=== PATIENT | male | born 1990 | race Two or more races ===

== ENCOUNTER 2018-10-06 23:32 | Inpatient (IN) | payer OTHER ==
[2018-10-06] MEDS ORDERED: EPINEPHrine 1:1,000 - 30 MG/30 ML VIAL IM ONE (23:36)
--- NOTE | 2018-10-06 23:38 | PDOC ---
History of Present Illness - General Stated Complaint: DIFF. BREATHING Time Seen by Provider: 10/06/18 23:34 - History of Present Illness Initial Comments: 10/06/18 23:34 Mr. Benedict is a 28 yo male w/ pmh of Asthma (requiring intubation at outside hospital 1 year ago) who presents for difficulty breathing. Patient reports he was his in [facility] until 2 hours ago when he began to get short of breath. Elected to call EMS when his home nebulizer did not improve his symptoms. En route to ED patient received 10mg decadron and 2 combivent treatments. The patient denies chest pain, headache and dizziness. Denies fever, chills, nausea, vomit, diarrhea and constipation. Denies dysuria, frequency, urgency and hematuria. Past History - Past Medical History Allergies/Adverse Reactions: Allergies Allergy/AdvReac Type Severity Reaction Status Date / Time No Known Allergies Allergy Verified 10/06/18 23:44 Review of Systems - Review of Systems Comments:: 10/06/18 23:34 GENERAL/CONSTITUTIONAL: No fever or chills. No weakness. HEAD, EYES, EARS, NOSE AND THROAT: No change in vision. No ear pain or discharge. No sore throat. CARDIOVASCULAR: +SOB as described. No chest pain RESPIRATORY: No cough, wheezing, or hemoptysis. GASTROINTESTINAL: No nausea, vomiting, diarrhea or constipation. GENITOURINARY: No dysuria, frequency, or change in urination. MUSCULOSKELETAL: No joint or muscle swelling or pain. No neck or back pain. SKIN: No rash NEUROLOGIC: No headache, vertigo, loss of consciousness, or change in strength/ sensation. ENDOCRINE: No increased thirst. No abnormal weight change HEMATOLOGIC/LYMPHATIC: No anemia, easy bleeding, or history of blood clots. ALLERGIC/IMMUNOLOGIC: No hives or skin allergy. *Physical Exam - Physical Exam Comments: 10/06/18 23:35 GENERAL: Awake, alert, and fully oriented, in no acute distress HEAD: No signs of trauma, normocephalic, atraumatic EYES: PERRLA, EOMI, sclera anicteric, conjunctiva clear ENT: Auricles normal inspection, hearing grossly normal, nares patent, oropharynx clear without exudates. Moist mucosa NECK: Normal ROM, supple, no lymphadenopathy, JVD, or masses LUNGS: +Diffuse wheezes appreciated throughout lung [place]. HEART: Regular rate and rhythm, normal S1 and S2, no murmurs, rubs or gallops, peripheral pulses normal and equal bilaterally. ABDOMEN: Soft, nontender, normoactive bowel sounds. No guarding, no rebound. No masses EXTREMITIES: Normal inspection, Normal range of motion, no edema. No clubbing or cyanosis. NEUROLOGICAL: Cranial nerves II through XII grossly intact. Normal speech, normal gait, no focal sensorimotor deficits SKIN: Warm, Dry, normal turgor, no rashes or lesions noted. ED Treatment Course - LABORATORY CBC & Chemistry Diagram: 10/07/18 00:35 10/07/18 00:35 Medical Decision Making - Medical Decision Making 10/07/18 00:31 Mr. Benedict is a 28 yo male w/ pmh as described who presents for evaluation of asthma exacerbation. Patient received 2 duonebs + decadron en route; patient started on BiPap upon arrival w/ additional magnesium + epinephrine. Patient will be monitored closely and evaluated with EKG / CXR / CBC / CMP for possible asthma exacerbation factors and likely will be admitted for observation. 10/07/18 01:57 Patient exam improved with wheezing decreased significantly. Patient signed out to Dr. Arthur for further evaluation. *DC/Admit/Observation/Transfer Diagnosis at time of Disposition: Asthma exacerbation Qualifiers: Asthma severity: unspecified severity Asthma persistence: unspecified Qualified Code(s): J45.901 - Unspecified asthma with (acute) exacerbation - Discharge Dispostion Decision to Admit order: Yes - Referrals - Patient Instructions - Post Discharge Activity
[2018-10-06 23:44] VITALS: BMI 24.3
[2018-10-06] MEDS ORDERED: MAGNESIUM SULF 50% (8.12 MEQ/2 ML-1 GM VIAL) ONE (23:53)
[2018-10-06] MEDS ORDERED: EPINEPHrine/PF 1 MG/1 ML (1:1,000) AMPULE ONE (23:56)
[2018-10-07] MEDS: ALBUTEROL SO4 2.5/IPRATROPIUM 0.5 INH SOL 3 ML VIAL.NEB. NEB SCH ×2 (00:20→00:33)
[2018-10-07] MEDS ORDERED: MAGNESIUM SULF 50% (8.12 MEQ/2 ML-1 GM VIAL) IVPB ONE (00:20)
[2018-10-07] MEDS ORDERED: MAGNESIUM SULF 50% (8.12 MEQ/2 ML-1 GM VIAL) ONE (01:07)
[2018-10-07 01:34] LABS: BASO % 0.9 % (0-2.0); HEMATOCRIT 48.5 % (35.4-49); HEMOGLOBIN 16.4 GM/dL (11.7-16.9); LYMPH % 28.1 % (8-40); MCHC 33.8 g/dl (32.0-35.9); MEAN CELL VOLUME 100.5 fl (80-96); MEAN PLT VOLUME 8.4 fl (7.5-11.1); MONO % 4.6 % (3.8-10.2); NEUT % 59.4 % (42.8-82.8); PLATELET COUNT 317 K/MM3 (134-434); RBC 4.83 M/mm3 (4.00-5.60); RDW 12.8 % (11.9-15.9); WHITE BLOOD COUNT 10.4 K/mm3 (4.0-10.0)
[2018-10-07 01:56] LABS: ALBUMIN 4.2 g/dl (3.4-5.0); BILIRUBIN,TOTAL 0.6 mg/dL (0.2-1); CALCIUM 8.8 mg/dL (8.5-10.1); POTASSIUM 3.8 mmol/L (3.5-5.1)
--- NOTE | 2018-10-07 02:09 | PDOC ---
Documentation entered by Obie John SCRIBE, acting as scribe for Gui Sanchez MD. Gui Sanchez MD: This documentation has been prepared by the Alvaro lenz Daniel, SCRIBE, under my direction and personally reviewed by me in its entirety. I confirm that the documentation accurately reflects all work, treatment, procedures, and medical decision making performed by me. Attending Attestation - Resident Resident Name: BarronMichael - ED Attending Attestation I have performed the following: I have examined & evaluated the patient, The case was reviewed & discussed with the resident, I agree w/resident's findings & plan, Exceptions are as noted - HPI HPI: 10/06/18 23:40 The patient is a 28 year old male with a past medical history of asthma ( intubated once last year) brought in today by EMS for evaluation of shortness of breath. The patient reports that he had a sudden onset of shortness of breath 2 hours prior to his arrival at the ED. He states that it feels like his typical asthma attacks. Patient was given 2 duoneb treatments and dexamethasone as per EMS but feels no relief. Patient denies headache, lightheadedness. Denies fever, chills. Denies chest pain. Denies nausea, vomiting, diarrhea, abdominal pain. Social history: Patient denies tobacco and illicit drug use. - Physicial Exam PE: 10/07/18 00:05 GENERAL: Awake, alert, in moderate resp distress. Diaphoretic HEAD: No signs of trauma EYES: PERRLA, EOMI, sclera anicteric, conjunctiva clear ENT: Oropharynx clear without exudates. Moist mucosa NECK: Normal ROM, supple, no lymphadenopathy, JVD, or masses LUNGS: Diffuse wheezing with poor air movement, no crackles HEART: Regular rate and rhythm, normal S1 and S2, no murmurs, rubs or gallops ABDOMEN: Soft, nontender, normoactive bowel sounds. No guarding, no rebound. No masses EXTREMITIES: Normal range of motion, no edema. No cords, erythema, or tenderness NEUROLOGICAL: Normal speech, cranial nerves intact, equal strength and sensation b/l SKIN: Warm, Dry, normal turgor, no rashes or lesions noted. - Medical Decision Making 10/07/18 02:07 28yo M presents to the ED with asthma exacerbation Pt in moderate distress despite nebs, dex, was put on bipap with continuous nebs going and given IM epi Improved on bipap, sat 99%, decreased WOB Labs, XR pending, plan to admit pt Pt signed out to overnight attending for f/u on diagnostics and admission
--- NOTE | 2018-10-07 02:22 | PN ---
Teaching Attending Note Name of Resident: Perla Dominguez ATTENDING PHYSICIAN STATEMENT I saw and evaluated the patient. I reviewed the resident's note and discussed the case with the resident. I agree with the resident's findings and plan as documented. SUBJECTIVE: Seen and examined; please refer tor mandeepdent note for further hsitorical documentation. Briefly, this is a 28 y/o male presenting to the ER with an asthma exacerbation; he has a mild eosinophilia and a WBC of 10 but no fevers, etc. He was initially placed on BiPap in [facility] ER satting 100%. Diagnosed with asthma 3.5 yrs ago was intubated once; this is his first visit here. This was sudden-onset asthma. No specific historical triggers for his attacks. Has been using albuterol more frequently this week and 4 times today. No inhaled steroids. No recent abx/infections. No PFTs available. 10 sys ROS done and negative aside from HPI PMH, PSH, FH, SH reviewed Home med reconciliation pending OBJECTIVE: VS, labs, imaging reviewed NAD, AAO, resting in bed on BiPap weaning to NC NC AT EOMI PERRLA RRR s1/2 no mgr Lungs with moderate scattered wheezes throughout with adequate air entry, w/ sym exp NT ND +BS CN2-12 wnl, no fnd Normal mood, appropriate behavior EKG reviewed CXR reviewed; NAD ASSESSMENT AND PLAN: Patient presents with asthma exacerbation; found to have high EP% and was diagnosed with asthma as adult 1) Acute Asthma Exacerbation -Weaning from bipap to NC; steroids and scheduled albuterol -As likely moderate to severe asthma at baseline startign monteleukast; will need inhaled steroid at DC -Given elevated EP% and late age dx of asthma checking ANCA -Consider pulm consult in AM 2) Eosinophilia -Trending; discussed further in #1 Full Code
[2018-10-07 02:34] LABS: VENOUS PC02 38.5 mmHg (41-51); VENOUS PH 7.4 (7.31-7.41)
[2018-10-07 02:48] LABS: ALLENS TEST POSITIVE
[2018-10-07 02:56] LABS: ARTERIAL BLD GAS O2 SATURATION 99.5 % (95-98); ARTERIAL BLOOD GAS BASE EXCESS -0.5 meq/l (-2-2); ARTERIAL BLOOD GAS PCO2 46.3 mmHg (35-45); ARTERIAL BLOOD GAS PO2 236 mmHg (80-105); ARTERIAL BLOOD GAS pH 7.35 (7.35-7.45)
[2018-10-07] MEDS ORDERED: predniSONE 20 MG TABLET (UD) PO SCH ×2 (02:58→10:00)
--- NOTE | 2018-10-07 03:08 | HP ---
CHIEF COMPLAINT: shortness of breath PCP:unknown HISTORY OF PRESENT ILLNESS: 28 y/o male with PMH of asthma (diagnosed 3.5 years ago) presents to the ED with acute onset shortness of breath/ Patient states he all f the sudden got short of breath- which is typical for his asthma exacerbations- he can never truly pinpoint exactly what causes these exacerbations. He has been intubated once before which was last year. he states that for his asthma he uses his rescue inhaler when need be and this week he had been using a few more times than usual. he denies any systemic symptoms; no cough/cold/fevers or chills no recent travel or sick contacts. ER course was notable for: (1)patient given mag sulfate; epinephrine (2)patient placed on BIPAP (3) CXR clear; awaiting ABG Recent Travel: denies PAST MEDICAL HISTORY: see above PAST SURGICAL HISTORY: denies Social History: Smoking:denies Alcohol:denies Drugs: denies Family History: mother: HTN; ffather: cannot recall Allergies No Known Allergies Allergy (Verified 10/06/18 23:44) HOME MEDICATIONS: REVIEW OF SYSTEMS CONSTITUTIONAL: Absent: fever, chills, diaphoresis, generalized weakness, malaise, loss of appetite, weight change HEENT: Absent: rhinorrhea, nasal congestion, throat pain, throat swelling, difficulty swallowing, mouth swelling, ear pain, eye pain, visual changes CARDIOVASCULAR: Absent: chest pain, syncope, palpitations, irregular heart rate, lightheadedness , peripheral edema RESPIRATORY: Present: shortness of breath Absent: cough,, dyspnea with exertion, orthopnea, wheezing, stridor, hemoptysis GASTROINTESTINAL: Absent: abdominal pain, abdominal distension, nausea, vomiting, diarrhea, constipation, melena, hematochezia GENITOURINARY: Absent: dysuria, frequency, urgency, hesitancy, hematuria, flank pain, genital pain MUSCULOSKELETAL: Absent: myalgia, arthralgia, joint swelling, back pain, neck pain SKIN: Absent: rash, itching, pallor HEMATOLOGIC/IMMUNOLOGIC: Absent: easy bleeding, easy bruising, lymphadenopathy, frequent infections ENDOCRINE: Absent: unexplained weight gain, unexplained weight loss, heat intolerance, cold intolerance NEUROLOGIC: Absent: headache, focal weakness or paresthesias, dizziness, unsteady gait, seizure, mental status changes, bladder or bowel incontinence PSYCHIATRIC: Absent: anxiety, depression, suicidal or homicidal ideation, hallucinations. PHYSICAL EXAMINATION Vital Signs - 24 hr 10/06/18 10/07/18 10/07/18 23:42 00:02 00:48 Pulse Rate 111 H 85 Pulse Rate [ Apical] Respiratory 24 H Rate Blood Pressure 145/85 Blood Pressure [Left Arm] O2 Sat by Pulse 100 100 100 Oximetry (%) 10/07/18 10/07/18 00:50 02:24 Pulse Rate Pulse Rate [ 85 Apical] Respiratory 23 H Rate Blood Pressure Blood Pressure 127/78 [Left Arm] O2 Sat by Pulse 100 100 Oximetry (%) GENERAL: put is drowsy; but arousable wearing BIPAP EYES: PEERLA: EOMI: no sclerla icterus NECK: no JVD: nio lymphadenopathy LUNGS: wheezes auscultated B/L HEART: Regular rate and rhythm, normal S1 and S2 without murmur, rub or gallop. ABDOMEN: Soft, nontender, not distended, normoactive bowel sounds, no guarding, no rebound, no masses. No hepatomegaly or splenomegaly. MUSCULOSKELETAL: Normal range of motion at all joints. No bony deformities or tenderness. No CVA tenderness. EXTREMITIES: warm; well-perfused; no clubbing/cyanosis or edema NEUROLOGICAL: Cranial nerves II-XII intact. Normal speech. Normal gait. PSYCHIATRIC: Cooperative. Good eye contact. Appropriate mood and affect. SKIN: Warm, dry, normal turgor, no rashes or lesions noted, normal capillary refill. Laboratory Results - last 24 hr 10/07/18 10/07/18 10/07/18 00:35 00:35 02:17 WBC 10.4 H RBC 4.83 Hgb 16.4 Hct 48.5 MCV 100.5 H MCH 34.0 H MCHC 33.8 RDW 12.8 Plt Count 317 MPV 8.4 Absolute Neuts (auto) 6.2 Neutrophils % 59.4 Lymphocytes % 28.1 Monocytes % 4.6 Eosinophils % 7.0 H Basophils % 0.9 Nucleated RBC % 0 Anticoagulation Therapy Puncture Site ABG pH ABG pCO2 at Pt Temp ABG pO2 at Pt Temp ABG HCO3 ABG O2 Sat (Measured) ABG O2 Content ABG Base Excess Marlo Test VBG pH 7.40 POC VBG pCO2 38.5 L POC VBG pO2 208 H VBG HCO3 23.2 VBG O2 Sat (Keira) 99.7 H VBG Base Excess -0.8 O2 Delivery Device Oxygen Flow Rate Vent Mode Vent Rate Mechanical Rate Pressure Support Vent Sodium 140 Potassium 3.8 Chloride 107 Carbon Dioxide 25 Anion Gap 9 BUN 17 Creatinine 1.0 Est GFR (CKD-EPI)AfAm 117.36 Est GFR (CKD-EPI)NonAf 101.26 Random Glucose 99 Calcium 8.8 Total Bilirubin 0.6 AST 9 L ALT 18 Alkaline Phosphatase 61 Total Protein 7.0 Albumin 4.2 10/07/18 02:40 WBC RBC Hgb Hct MCV MCH MCHC RDW Plt Count MPV Absolute Neuts (auto) Neutrophils % Lymphocytes % Monocytes % Eosinophils % Basophils % Nucleated RBC % Anticoagulation Therapy No Result Required. Puncture Site Right radial ABG pH 7.35 ABG pCO2 at Pt Temp 46.3 H ABG pO2 at Pt Temp 236 H ABG HCO3 25.1 ABG O2 Sat (Measured) 99.5 H ABG O2 Content 24.2 H ABG Base Excess -0.5 Marlo Test Positive VBG pH POC VBG pCO2 POC VBG pO2 VBG HCO3 VBG O2 Sat (Keira) VBG Base Excess O2 Delivery Device Bipap Oxygen Flow Rate 60% Vent Mode S/t Vent Rate 18 Mechanical Rate Bipap Pressure Support Vent 16/7 Sodium Potassium Chloride Carbon Dioxide Anion Gap BUN Creatinine Est GFR (CKD-EPI)AfAm Est GFR (CKD-EPI)NonAf Random Glucose Calcium Total Bilirubin AST ALT Alkaline Phosphatase Total Protein Albumin ASSESSMENT/PLAN: 28 y.o male with PMH of asthma presents to the ED with acute onset shortness of breath likely secondary to his asthma #Asthma Exacerbation patient already received epinephrine and mag sulfate in the ED -albuterol q6h scheduled -prednisone 40mg daily -montelukast daily --f/u ABG -will try and wean patient off BIPAP -given late onset diagnosis of asthma + presence of eosinophils; will send ANCA for possible churg chilo diagnosis -monitor O2 sats -monitor mental status -can consider pulm consult in AM F/E/N not on fluids monitor electrolytes regular diet dispo: med surg DVt PPX: lovenox Problem List - Problem (1) Asthma exacerbation Code(s): J45.901 - UNSPECIFIED ASTHMA WITH (ACUTE) EXACERBATION Qualifiers: Asthma severity: unspecified severity Asthma persistence: unspecified Qualified Code(s): J45.901 - Unspecified asthma with (acute) exacerbation Visit type - Emergency Visit Emergency Visit: Yes Care time: The patient presented to the Emergency Department on the above date and was hospitalized for further evaluation of their emergent condition. - New Patient This patient is new to me today: Yes Date on this admission: 10/07/18 - Critical Care Critical Care patient: No
[2018-10-07 07:14] LABS: BASO % 0.2 % (0-2.0); EOS % 0.1 % (0-4.5); HEMATOCRIT 48.2 % (35.4-49); HEMOGLOBIN 16.8 GM/dL (11.7-16.9); LYMPH % 12.2 % (8-40); MCH 34.7 pg (25.7-33.7); MCHC 34.9 g/dl (32.0-35.9); MEAN CELL VOLUME 99.4 fl (80-96); MEAN PLT VOLUME 7.8 fl (7.5-11.1); MONO % 1.1 % (3.8-10.2); NEUT % 86.4 % (42.8-82.8); PLATELET COUNT 347 K/MM3 (134-434); RBC 4.85 M/mm3 (4.00-5.60); RDW 12.9 % (11.9-15.9); WHITE BLOOD COUNT 6.2 K/mm3 (4.0-10.0)
[2018-10-07 07:40] LABS: ALBUMIN 4.2 g/dl (3.4-5.0); BILIRUBIN,TOTAL 0.8 mg/dL (0.2-1); CALCIUM 9.2 mg/dL (8.5-10.1); CREATININE 0.9 mg/dL (0.55-1.3); MAGNESIUM 2.6 mg/dL (1.8-2.4); PHOSPHOROUS 3.2 mg/dL (2.5-4.9); POTASSIUM 4.8 mmol/L (3.5-5.1); TOT PROT 7.2 g/dl (6.4-8.2)
[2018-10-07] MEDS: ALBUTEROL SO4 0.083% IH SOL 2.5 MG/3 ML VIAL.NEB. NEB SCH ×2 (08:22→11:20)
[2018-10-07 09:03] VITALS: BP 137/70; PULSE 98; TEMP 98.1
[2018-10-07] MEDS ORDERED: ENOXAPARIN NA (PORCINE) 40 MG/0.4 ML DISP.SYRIN SQ SCH (10:00)
--- NOTE | 2018-10-07 10:56 | DS ---
Physical Exam: SUBJECTIVE: Patient seen and examined.a symptomatic. states he feels much better since yesterday. ran out of all his meds 3 weeks ago and only has albuterol inhalers. has not been able to afford medication.denies CP, SOB, fever , chills,cough,. has not been able to recognize triggers but notes that he gets flares during season changes. has not seen a pulmonolgist OBJECTIVE: Vital Signs Period Temp Pulse Resp BP Sys/Godfrey Pulse Ox Last 24 Hr 97.4 F-98.1 F 72-111 20-24 118-145/67-85 99-100 PHYSICAL EXAM GENERAL: The patient is awake, alert, and fully oriented, in no acute distress. HEAD: Normal with no signs of trauma. EYES: PERRL, extraocular movements intact, sclera anicteric, conjunctiva clear. ENT: Ears normal, nares patent, oropharynx clear without exudates, moist mucous membranes. NECK: Trachea midline, full range of motion, supple. LUNGS: scattered wheezing, no crackles, no accessory muscle use. HEART: Regular rate and rhythm, S1, S2 without murmur, rub or gallop. ABDOMEN: Soft, nontender, nondistended, normoactive bowel sounds, no guarding, no rebound, no hepatosplenomegaly, no masses. EXTREMITIES: 2+ pulses, warm, well-perfused, no edema. NEUROLOGICAL: Cranial nerves II through XII grossly intact. Normal speech, gait not observed. PSYCH: Normal mood, normal affect. SKIN: Warm, dry, normal turgor, no rashes or lesions noted. LABS Laboratory Results - last 24 hr 10/07/18 10/07/18 10/07/18 00:35 00:35 02:17 WBC 10.4 H RBC 4.83 Hgb 16.4 Hct 48.5 MCV 100.5 H MCH 34.0 H MCHC 33.8 RDW 12.8 Plt Count 317 MPV 8.4 Absolute Neuts (auto) 6.2 Neutrophils % 59.4 Lymphocytes % 28.1 Monocytes % 4.6 Eosinophils % 7.0 H Basophils % 0.9 Nucleated RBC % 0 Anticoagulation Therapy Puncture Site ABG pH ABG pCO2 at Pt Temp ABG pO2 at Pt Temp ABG HCO3 ABG O2 Sat (Measured) ABG O2 Content ABG Base Excess Marlo Test VBG pH 7.40 POC VBG pCO2 38.5 L POC VBG pO2 208 H VBG HCO3 23.2 VBG O2 Sat (Keira) 99.7 H VBG Base Excess -0.8 O2 Delivery Device Oxygen Flow Rate Vent Mode Vent Rate Mechanical Rate Pressure Support Vent Sodium 140 Potassium 3.8 Chloride 107 Carbon Dioxide 25 Anion Gap 9 BUN 17 Creatinine 1.0 Est GFR (CKD-EPI)AfAm 117.36 Est GFR (CKD-EPI)NonAf 101.26 Random Glucose 99 Lactic Acid Calcium 8.8 Phosphorus Magnesium Total Bilirubin 0.6 AST 9 L ALT 18 Alkaline Phosphatase 61 Total Protein 7.0 Albumin 4.2 10/07/18 10/07/18 10/07/18 02:40 03:30 06:30 WBC 6.2 RBC 4.85 Hgb 16.8 Hct 48.2 MCV 99.4 H MCH 34.7 H MCHC 34.9 RDW 12.9 Plt Count 347 MPV 7.8 Absolute Neuts (auto) 5.4 Neutrophils % 86.4 H D Lymphocytes % 12.2 D Monocytes % 1.1 L Eosinophils % 0.1 D Basophils % 0.2 Nucleated RBC % 0 Anticoagulation Therapy No Result Required. Puncture Site Right radial ABG pH 7.35 ABG pCO2 at Pt Temp 46.3 H ABG pO2 at Pt Temp 236 H ABG HCO3 25.1 ABG O2 Sat (Measured) 99.5 H ABG O2 Content 24.2 H ABG Base Excess -0.5 Marlo Test Positive VBG pH POC VBG pCO2 POC VBG pO2 VBG HCO3 VBG O2 Sat (Keira) VBG Base Excess O2 Delivery Device Bipap Oxygen Flow Rate 60% Vent Mode S/t Vent Rate 18 Mechanical Rate Bipap Pressure Support Vent 16/7 Sodium Potassium Chloride Carbon Dioxide Anion Gap BUN Creatinine Est GFR (CKD-EPI)AfAm Est GFR (CKD-EPI)NonAf Random Glucose Lactic Acid 0.9 Calcium Phosphorus Magnesium Total Bilirubin AST ALT Alkaline Phosphatase Total Protein Albumin 10/07/18 06:30 WBC RBC Hgb Hct MCV MCH MCHC RDW Plt Count MPV Absolute Neuts (auto) Neutrophils % Lymphocytes % Monocytes % Eosinophils % Basophils % Nucleated RBC % Anticoagulation Therapy Puncture Site ABG pH ABG pCO2 at Pt Temp ABG pO2 at Pt Temp ABG HCO3 ABG O2 Sat (Measured) ABG O2 Content ABG Base Excess Marlo Test VBG pH POC VBG pCO2 POC VBG pO2 VBG HCO3 VBG O2 Sat (Keira) VBG Base Excess O2 Delivery Device Oxygen Flow Rate Vent Mode Vent Rate Mechanical Rate Pressure Support Vent Sodium 138 Potassium 4.8 Chloride 106 Carbon Dioxide 26 Anion Gap 6 L BUN 18 Creatinine 0.9 Est GFR (CKD-EPI)AfAm 133.30 Est GFR (CKD-EPI)NonAf 115.01 Random Glucose 133 H Lactic Acid Calcium 9.2 Phosphorus 3.2 Magnesium 2.6 H Total Bilirubin 0.8 AST 8 L ALT 17 Alkaline Phosphatase 62 Total Protein 7.2 Albumin 4.2 HOSPITAL COURSE: Date of Admission:10/07/18 Date of Discharge: 10/07/18 Admitting diagnosis: Acute asthma exacerbation Pre hospital course 28 y/o male with PMH of asthma (diagnosed 3.5 years ago) presents to the ED with acute onset shortness of breath/ Patient states he all f the sudden got short of breath- which is typical for his asthma exacerbations- he can never truly pinpoint exactly what causes these exacerbations. He has been intubated once before which was last year. he states that for his asthma he uses his rescue inhaler when need be and this week he had been using a few more times than usual. he denies any systemic symptoms; no cough/cold/fevers or chills no recent travel or sick contacts. SUbsequent hospital course received dexamethsone en route to hospital. was placed on bipap in the Er with resolution of symptoms. currently 96% on RA. was able to walk the length of the unit without dypsnea. requesting to go home. discussed in detail importance of medication compliance and follow up. informed him of severity of asthma and can lead to if has an attack. verbalized understanding. will d/c home on slow pred taper, zpack, symbicort and singulair. will send to sunlight so can be cost adjusted. stressed need for medication compliance and follow up. Minutes to complete discharge: 40 Discharge Summary Reason For Visit: ASTHMA Current Active Problems Asthma exacerbation (Acute) Condition: Improved - Instructions Diet, Activity, Other Instructions: You were admitted to the hospital due to an asthma exacerbation. This could of occurred since you stopped taking your medications appropriately. You are being discharged home with a steroid taper. PLease take as instructed below, Take all pills until completed, even if your symptoms improved. Take symbicort twice a day EVERY DAY, regardless of how you are feeling Your albuterol should only be used as needed. A referral for a lung specialist has been provided. Please make an appointment so further testing can be done. Follow up with a primary care doctor in 1 week, if you do not have one, a referral for one has been provided Return to the ER if your symptoms worsen, if you develop shortness of breath or chest pain Steroid taper 10/08- take 5 tabs 10/11- take 4 tabs 10/14- take 3 tabs 10/17-30 take 2 tabs 10/20- 6/ take 1 tab Referrals: Yifan Manzano MD [Staff Physician] - Perla Dominguez RES [Resident] - Disposition: HOME - Home Medications Comprehensive Discharge Medication List: Ambulatory Orders Albuterol Sulfate Inhaler - [Ventolin HFA Inhaler -] 1 - 2 inh PO Q4H #1 inhaler 10/07/18 Azithromycin [Zithromax 250mg Tablets -] 250 mg PO DAILY #6 tab 10/07/18 Budesonide/Formeterol Fumarate [SYMBICORT 80/4.5mcg -] 1 inh PO BID #1 cannister 10/07/18 Montelukast Na [Singulair -] 10 mg PO HS #30 tablet 10/07/18 Prednisone 10 mg PO DAILY #45 tablet 10/07/18 This patient is new to me today: Yes Date on this admission: 10/07/18 Emergency Visit: Yes ED Registration Date: 10/07/18 Care time: The patient presented to the Emergency Department on the above date and was hospitalized for further evaluation of their emergent condition. Critical Care patient: No - Discharge Referral Referred to [facility] No
[2018-10-07] MEDS ORDERED: MONTELUKAST NA 5 MG TAB.CHEW PO ONE (10:57)
--- NOTE | 2018-10-07 10:59 | EKG ---
Test Reason : Blood Pressure : / mmHG Vent. Rate : 112 BPM Atrial Rate : 112 BPM P-R Int : 130 ms QRS Dur : 084 ms QT Int : 332 ms P-R-T Axes : 083 090 075 degrees QTc Int : 453 ms POOR DATA QUALITY, INTERPRETATION MAY BE ADVERSELY AFFECTED SINUS TACHYCARDIA POSSIBLE LEFT ATRIAL ENLARGEMENT SEPTAL INFARCT , AGE UNDETERMINED ABNORMAL ECG NO PREVIOUS ECGS AVAILABLE Confirmed by DULCE DAMON MD ([id number]) on 10/07/2018 10:58:38 AM Referred By: Confirmed By:DULCE DAMON MD
[2018-10-07] MEDS ORDERED: BUDESONIDE/FORMETEROL FUMARATE 80/4.5 mcg INHALER IH SCH (11:00)
[2018-10-07] MEDS ORDERED: MONTELUKAST NA 10 MG TABLET PO SCH (22:00)
[2018-10-10 17:14] LABS: ATYPICAL pANCA <1:20 titer (Neg:<1:20); C-ANCA <1:20 titer (Neg:<1:20); P-ANCA <1:20 titer (Neg:<1:20)
== END 2018-10-07 13:15 | disposition home or self-care (01) | DRG 141 ==
LOC: JER 23:32 → JERBED 10-07 01:25 → OBSVTOIN 10-07 02:54 → J5S 10-07 04:42
PROVIDERS: ADMIT Internal Medicine; ATTEND Internal Medicine
PROC: 5A09357 Assistance with Respiratory Ventilation, Less than 24 Consecutive Hours, Continuous Positive Airway Pressure (ICD-10-PCS; principal; 2018-10-07)
DX: J45.901 Unspecified asthma with (acute) exacerbation (principal); D72.1 Eosinophilia
CPT/HCPCS: 36415; 36600; 71045-TC-FY; 80053; 82803; 83520; 83605; 83735; 84100; 85025; 86256; 93005; 93010; 94640; 99285-25; G0378